=== PATIENT | male | born 1990 | race Caucasian/White ===

== ENCOUNTER 2017-01-03 08:17 | Emergency (ER) | payer OTHER ==
[~2017-01-03] VITALS: Ht 167.6 cm; Wt 67.7 kg
[2017-01-03 08:21] VITALS: BP 121/86
[2017-01-03] MEDS ORDERED: MECLIZINE CHEWABLE 25 MG TAB ONE (08:45)
[2017-01-03] MEDS ORDERED: MECLIZINE CHEWABLE 25 MG TAB PO ONE (09:00)
== END 2017-01-03 09:15 | disposition home or self-care (01) ==
LOC: ED 09:00
DX: H65.03 Acute serous otitis media, bilateral (principal); F41.9 Anxiety disorder, unspecified
CPT/HCPCS: 93005; 99283

== ENCOUNTER 2017-05-23 20:31 | Emergency (ER) | payer SELFPAY ==
[~2017-05-23] VITALS: Ht 167.6 cm; Wt 70.0 kg
[2017-05-24 00:16] LABS: BASOPHILS # (AUTO) 0.05 x10^3/uL (0-0.1); BASOPHILS % (AUTO) 1 % (0-1); EOSINOPHILS # (AUTO) 0.09 x10^3/uL (0-0.4); EOSINOPHILS % (AUTO) 1 % (1-7); LYMPHOCYTES % (AUTO) 25 % (22-44); MD NO; MEAN CORPUSCULAR HEMOGLOBIN 20.9 pg (27.5-34.5); MEAN CORPUSCULAR HGB CONC 32.4 g/dL (33.2-36.2); MEAN CORPUSCULAR VOLUME 64.5 fL (81-97); MEAN PLATELET VOLUME 9.6 fL (7.4-10.4); MONOCYTES # (AUTO) 0.57 x10^3/uL (0.2-0.8); MONOCYTES % (AUTO) 8 % (2-9); NEUTROPHILS # (AUTO) 4.96 x10^3/uL (1.8-6.8); NEUTROPHILS % (AUTO) 66 % (42-75); PLATELET COUNT 164 x10^3/uL (130-400); RED BLOOD COUNT 6.02 x10^6/uL (4.38-5.82); RED CELL DISTRIBUTION WIDTH 15.1 % (9.4-14.8)
[2017-05-24 00:27] LABS: ANION GAP 6 mmol/L (5-15); CALCIUM 8.8 mg/dL (8.5-10.1); CHLORIDE 107 mmol/L (98-107); CREATININE 1.05 mg/dL (0.7-1.3)
[2017-05-24 00:33] VITALS: BP 136/89
== END 2017-05-24 00:50 | disposition home or self-care (01) ==
LOC: ED 23:59
DX: R42 Dizziness and giddiness (principal); I10 Essential (primary) hypertension; F41.9 Anxiety disorder, unspecified
CPT/HCPCS: 36415; 80048; 85025; 93005; 99285

== ENCOUNTER 2018-05-24 19:10 | Emergency (ER) | payer OTHER ==
[~2018-05-24] VITALS: Ht 167.6 cm; Wt 72.8 kg
[2018-05-24 19:12] VITALS: BP 137/92
[2018-05-24] MEDS ORDERED: ASPIRIN 81 MG TABLET CHEW PO ONE (19:30)
[2018-05-24] MEDS ORDERED: ASPIRIN 81 MG TABLET CHEW ONE (19:37)
[2018-05-24 19:52] LABS: ALANINE AMINOTRANSFERASE 74 U/L (12-78); ALBUMIN 4.4 g/dL (3.4-5.0); ANION GAP 6 mmol/L (5-15); CALCIUM 8.7 mg/dL (8.5-10.1); CHLORIDE 108 mmol/L (98-107)
[2018-05-24 19:57] LABS: ALKALINE PHOSPHATASE 78 U/L (45-117); BILIRUBIN,TOTAL 1.1 mg/dL (0.2-1.0); TOTAL PROTEIN 8.4 g/dL (6.4-8.2); TROPONIN I < 0.015 ng/mL (0.000-0.045)
[2018-05-24 20:00] LABS: BASOPHILS # (AUTO) 0.02 x10^3/uL (0-0.1); BASOPHILS % (AUTO) 0 % (0-1); EOSINOPHILS # (AUTO) 0.13 x10^3/uL (0-0.4); EOSINOPHILS % (AUTO) 2 % (1-7); LYMPHOCYTES # (AUTO) 1.57 x10^3/uL (1-3.4); LYMPHOCYTES % (AUTO) 22 % (22-44); MD SCAN; MEAN CORPUSCULAR HEMOGLOBIN 21.2 pg (27.5-34.5); MEAN CORPUSCULAR HGB CONC 32.6 g/dL (33.2-36.2); MEAN CORPUSCULAR VOLUME 65.2 fL (81-97); MEAN PLATELET VOLUME 9.6 fL (7.4-10.4); MONOCYTES % (AUTO) 11 % (2-9); NEUTROPHILS # (AUTO) 4.72 x10^3/uL (1.8-6.8); NEUTROPHILS % (AUTO) 65 % (42-75); PLATELET COUNT 154 x10^3/uL (130-400); RED BLOOD COUNT 6.32 x10^6/uL (4.38-5.82); RED CELL DISTRIBUTION WIDTH 14.9 % (9.4-14.8)
== END 2018-05-24 21:04 | disposition home or self-care (01) ==
LOC: ED 21:00
DX: R07.89 Other chest pain (principal); Z87.891 Personal history of nicotine dependence; Z91.013 Allergy to seafood
CPT/HCPCS: 36415; 71046; 80053; 83690; 84484; 85025; 85379; 93005; 99284

== ENCOUNTER 2018-09-08 15:16 | Emergency (ER) | payer OTHER ==
[~2018-09-08] VITALS: Ht 167.6 cm; Wt 71.7 kg
[2018-09-08 15:57] LABS: ALBUMIN 4.4 g/dL (3.4-5.0); ANION GAP 8 mmol/L (5-15); CALCIUM 8.9 mg/dL (8.5-10.1); CHLORIDE 105 mmol/L (98-107); CREATININE 1.04 mg/dL (0.7-1.3)
[2018-09-08 16:01] LABS: ALANINE AMINOTRANSFERASE 59 U/L (12-78); ALKALINE PHOSPHATASE 60 U/L (45-117); BILIRUBIN,TOTAL 1.8 mg/dL (0.2-1.0); TOTAL PROTEIN 8.6 g/dL (6.4-8.2)
--- NOTE | 2018-09-08 16:28 | NUR ---
PT TO CT
[2018-09-08] MEDS ORDERED: OMNIPAQUE 350 MG/ML, 100ML BOTTLE ONE (16:53)
[2018-09-08 17:12] LABS: BASOPHILS # (AUTO) 0.05 x10^3/uL (0-0.1); BASOPHILS % (AUTO) 1 % (0-1); EOSINOPHILS # (AUTO) 0.15 x10^3/uL (0-0.4); EOSINOPHILS % (AUTO) 2 % (1-7); LYMPHOCYTES # (AUTO) 1.81 x10^3/uL (1-3.4); LYMPHOCYTES % (AUTO) 24 % (22-44); MD NO; MEAN CORPUSCULAR HEMOGLOBIN 21.2 pg (27.5-34.5); MEAN CORPUSCULAR HGB CONC 31.4 g/dL (33.2-36.2); MEAN CORPUSCULAR VOLUME 67.4 fL (81-97); MEAN PLATELET VOLUME 9.6 fL (7.4-10.4); MONOCYTES # (AUTO) 0.57 x10^3/uL (0.2-0.8); MONOCYTES % (AUTO) 8 % (2-9); NEUTROPHILS # (AUTO) 4.89 x10^3/uL (1.8-6.8); NEUTROPHILS % (AUTO) 66 % (42-75); PLATELET COUNT 178 x10^3/uL (130-400); RED BLOOD COUNT 6.51 x10^6/uL (4.38-5.82); RED CELL DISTRIBUTION WIDTH 15.3 % (9.4-14.8)
--- NOTE | 2018-09-08 17:32 | NUR ---
PT TO MRI
[2018-09-08 18:32] VITALS: BP 131/90
--- NOTE | 2018-09-08 18:32 | NUR ---
PT UP FOR RECHECK. PT RESTING IN [facility] WATCHING TV WITH MOTHER, CALL LIGHT WITHIN REACH. NO NEEDS AT THIS TIME
--- NOTE | 2018-09-08 18:57 | NUR ---
BEDSIDE REPORT TO DINANE SIDHU
--- NOTE | 2018-09-08 18:57 | NUR ---
ASSUMED CARE OF PT PT IN NAD AT THIS TIME
[2018-09-08] MEDS ORDERED: MECLIZINE CHEWABLE 25 MG TAB ONE (19:58)
[2018-09-08] MEDS ORDERED: MECLIZINE CHEWABLE 25 MG TAB PO ONE (20:00)
--- NOTE | 2018-09-08 20:02 | NUR ---
Patient/Caregiver given discharge instructions and they have confirmed that they understand the instructions. Patient ambulatory with steady gait.
== END 2018-09-08 20:18 | disposition home or self-care (01) ==
LOC: ED 16:34
DX: R42 Dizziness and giddiness (principal)
CPT/HCPCS: 36415; 70450; 70496; 70498; 70551; 71045; 80053; 85025; 93005; 99284; Q9967

== ENCOUNTER 2019-08-03 21:15 | Emergency (ER) | payer OTHER ==
[~2019-08-03] VITALS: Ht 170.2 cm; Wt 63.9 kg
[2019-08-03 21:21] VITALS: BP 145/84
[2019-08-03] MEDS ORDERED: DEXAMETHASONE 4 MG TABLET ONE (21:51)
[2019-08-03] MEDS ORDERED: AMOXICILLIN 250 MG/5 ML, ORAL SUSP PO ONE (22:00)
[2019-08-03] MEDS ORDERED: DEXAMETHASONE 4 MG TABLET PO ONE (22:00)
[2019-08-03] MEDS ORDERED: ACETAMINOPHEN 325 MG TABLET ONE (22:27)
[2019-08-03] MEDS ORDERED: ACETAMINOPHEN 325 MG TABLET PO ONE (22:30)
== END 2019-08-03 22:48 | disposition home or self-care (01) ==
LOC: ED 22:46
DX: J02.0 Streptococcal pharyngitis (principal); R00.0 Tachycardia, unspecified; R07.9 Chest pain, unspecified; R51 Headache; I10 Essential (primary) hypertension; Z87.891 Personal history of nicotine dependence
CPT/HCPCS: 71045; 93005; 99284

== ENCOUNTER 2019-08-04 21:32 | Emergency (ER) | payer OTHER ==
[~2019-08-04] VITALS: Ht 170.2 cm; Wt 63.8 kg
[2019-08-04 21:34] VITALS: BP 141/90
--- NOTE | 2019-08-04 21:56 | NUR ---
Pt to room 35 per pedis. Pt presents to the ED tonight for c/o possible amoxicillin pill stuck in his throat. Pt was diagnosed yesterday with strep throat, and after having much anxiety about taking the antibiotic, he thinks that the pill got stuck in his throat and is blocking his airway. Pt moving air freely, no stridor noted. Pulse oxygen saturation is 100% on RA. Pt has the ability to cough and deep breath. Pt placed on O2 sat monitor, and given the call light with instructions. HELIOTHERAPIST in to assess patient.
[2019-08-04] MEDS ORDERED: MAALOX/HYOSCYAMINE/LIDOCAINE 45 ML BTL ONE (22:06)
--- NOTE | 2019-08-04 22:15 | NUR ---
PO medications given without diff. Pt ready for discharge
[2019-08-04] MEDS ORDERED: maalox/diphenh/lido/sucralfate 5 ML PO PRN (22:30)
--- NOTE | 2019-08-04 22:38 | NUR ---
Discharge instructions given to patient. Pt states "My throat feels so much better". RN encourage patient to continue his antibiotic, and to return for any emergent needs. Pt verbalizes understanding of all instructions and follow up. Pt ambulated out of ED per pedis with strong steady gait.
== END 2019-08-04 22:50 | disposition home or self-care (01) ==
LOC: ED 22:30
DX: J02.9 Acute pharyngitis, unspecified (principal); I10 Essential (primary) hypertension; F17.210 Nicotine dependence, cigarettes, uncomplicated
CPT/HCPCS: 99281; 99282; 99406

== ENCOUNTER 2019-08-12 20:22 | Emergency (ER) | payer OTHER ==
[~2019-08-12] VITALS: Ht 167.6 cm; Wt 63.8 kg
[2019-08-12 20:27] VITALS: BP 120/87
== END 2019-08-12 20:42 | disposition home or self-care (01) ==
LOC: ED 20:40
DX: Z00.00 Encounter for general adult medical examination without abnormal findings (principal)
CPT/HCPCS: 99281